=== PATIENT | female | born 1975 | race American Indian/Alaskan Native ===

== ENCOUNTER 2022-03-22 09:56 | Emergency (ER) | payer OTHER ==
[2022-03-22 10:13] VITALS: BP 131/85
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
[2022-03-22] MEDS ORDERED: IBUPROFEN 800 MG TAB PO ONE (11:29)
[2022-03-22] MEDS ORDERED: HYDROcodone/ACETAMINOPHEN 10-325MG TAB PO ONE (11:29)
[2022-03-22] MEDS ORDERED: CYCLOBENZAPRINE 10 MG TAB PO ONE (11:29)
== END 2022-03-22 15:01 | disposition home or self-care (01) ==
LOC: ED 09:56
DX: S39.012A Strain of muscle, fascia and tendon of lower back, initial encounter (principal); V89.2XXA Person injured in unspecified motor-vehicle accident, traffic, initial encounter; Y93.89 Activity, other specified; Y92.89 Other specified places as the place of occurrence of the external cause; Y99.8 Other external cause status; I10 Essential (primary) hypertension
CPT/HCPCS: 99283